=== PATIENT | male | born 1935 | race Caucasian/White ===

== ENCOUNTER 2020-03-08 13:46 | Emergency (ER) | payer MEDICARE ==
[~2020-03-08] VITALS: Ht 175.3 cm; Wt 82.0 kg
[2020-03-08] MEDS ORDERED: IPRATROPIUM 0.5 MG/2.5 ML INHA NPPB ONE (14:30)
[2020-03-08] MEDS ORDERED: SODIUM CHLORIDE FLUSH 10ML SYR IVF ONE (14:30)
[2020-03-08] MEDS ORDERED: ALBUTEROL SULFATE 2.5 MG/3 ML NPPB ONE (14:30)
--- NOTE | 2020-03-08 14:30 | NUR ---
PT BIB EMS FOR SOB. HX OF LUNG CANCER IN REMISSION. ON HOME O2. INCREASED SOB RECENTLY. PT PCP WAS CONCERNED W POSSIBLE PNEUMONIA. PT NOT IN RESP DISTRESS. DENIES CP. 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
[2020-03-08] MEDS ORDERED: ALBUTEROL SULFATE 2.5 MG/3 ML ONE (14:42)
[2020-03-08] MEDS ORDERED: IPRATROPIUM 0.5 MG/2.5 ML INHA ONE (14:43)
[2020-03-08 14:58] LABS: MEAN CORPUSCULAR HEMOGLOBIN 30.3 pg (27.5-34.5); MEAN CORPUSCULAR HGB CONC 32.6 g/dL (33.2-36.2); MEAN PLATELET VOLUME 9.1 fL (7.4-10.4); PLATELET COUNT 295 x10^3/uL (130-400); RED BLOOD COUNT 5.65 x10^6/uL (4.38-5.82); RED CELL DISTRIBUTION WIDTH 14.9 % (9.4-14.8)
[2020-03-08 15:04] LABS: ALANINE AMINOTRANSFERASE 79 U/L (12-78); ALBUMIN 2.6 g/dL (3.4-5.0); ANION GAP 4 mmol/L (5-15); CHLORIDE 106 mmol/L (98-107); CREATININE 0.89 mg/dL (0.7-1.3)
--- NOTE | 2020-03-08 15:07 | NUR ---
MEDICATED PER ORDERS. BREATHING TREATMENTS TOLERATED WELL. DENIES CP OR RESP DISTRESS
[2020-03-08 15:08] LABS: ALKALINE PHOSPHATASE 154 U/L (45-117); BILIRUBIN,TOTAL 0.5 mg/dL (0.2-1.0); TOTAL PROTEIN 6.9 g/dL (6.4-8.2); TROPONIN I < 0.015 ng/mL (0.000-0.045)
[2020-03-08 15:31] LABS: MD YES
[2020-03-08 15:33] LABS: <PLATELET ESTIMATE> ADEQUATE; BAND#(MANUAL) 0.15 x10^3/uL; BANDS%(MANUAL) 1 % (0-7); LYMPH#(MANUAL) 1.54 x10^3/uL (1-3.4); LYMPHS% (MANUAL) 10 % (22-44); MONOS#(MANUAL) 0.62 x10^3/uL (0.3-2.7); MONOS% (MANUAL) 4 % (2-9); SEG#(MANUAL) 13.09 x10^3/uL (1.8-6.8); SEGS% (MANUAL) 85 % (42-75)
[2020-03-08 15:34] LABS: <PLT MORPHOLOGY> NORMAL PLT MORPH; <RBC MORPHOLOGY> NORMAL
--- NOTE | 2020-03-08 15:35 | NUR ---
Ciara please call for update [phone]
--- NOTE | 2020-03-08 16:55 | NUR ---
FAMILY TO COME IN AN HOUR. PT DRESSED, READY FOR DC.
--- NOTE | 2020-03-08 17:53 | NUR ---
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
--- NOTE | 2020-03-08 18:39 | NUR ---
FAMILY HERE FOR DC. PT WHEELED TO CACHORRO W HOME O2.
[2020-03-08 18:40] VITALS: BP 142/85
--- NOTE | 2020-03-09 08:52 | NUR ---
COPY OF RX FOR NEB TX FAXED TO [facility] ([phone]) PER PT REQUEST, FAX CONFIRMATION FILED WITH COPY OF RX.
== END 2020-03-08 18:43 | disposition home or self-care (01) ==
LOC: ED 16:13
DX: J44.1 Chronic obstructive pulmonary disease with (acute) exacerbation (principal); R94.31 Abnormal electrocardiogram [ECG] [EKG]; Z87.891 Personal history of nicotine dependence
CPT/HCPCS: 36415; 71045; 80053; 83880; 84484; 85025; 93005; 94640; 99285; J7512; J7613; J7644